=== PATIENT | female | born 1975 | race Caucasian/White ===

== ENCOUNTER 2017-05-17 12:01 | Emergency (ER) | payer SELFPAY ==
--- NOTE | 2017-05-17 12:18 | ERNOTE ---
Abdominal HPI - General Chief Complaint: Abdominal Pain Time Seen by Provider: 05/17/17 12:11 Source: patient Exam Limitations: no limitations - Immun/Allergies/Home Medications Immunizatons: IMMUNIZATION HX Immunizations Up to Date Yes History of Influenza Vaccine No Hx Pneumococcal Vaccination No Allergies/Adverse Reactions: Allergies meperidine HCl [From Demerol] Adverse Reaction (Verified 05/17/17 12:13) Home Medications: HOME MEDICATIONS LORazepam [Ativan] 0.5 mg PO TID PRN #20 tab 12/26/14 [Last Taken Unknown] traMADol HCL [Ultram] 50 mg PO QID PRN #30 tab 12/26/14 [Last Taken Unknown] Cholecalciferol [Vitamin D] 5,000 unit PO 09/03/15 [Last Taken Unknown] Naproxen [Naprosyn] 500 mg PO BID PRN #60 tab 09/03/15 [Last Taken Unknown] Pantoprazole Sodium 40 mg PO DAILY 09/03/15 [Last Taken Unknown] Promethazine HCl [Phenergan] 25 mg PO PRN 09/03/15 [Last Taken Unknown] Sucralfate [Carafate] 1 gm PO QID 09/03/15 [Last Taken Unknown] HYDROcodone/ACETAMINOPHEN [Mcandrews 5-325 Tablet] 1 - 2 tab PO Q6H PRN #16 tab [Last Taken Unknown] Trifluridine [Viroptic] 1 drop RIGHTEYE Q2H #1 btl 11/20/15 [Last Taken Unknown] valACYclovir HCL [Valtrex] 1,000 mg PO TID #21 tab 11/20/15 [Last Taken Unknown] Famotidine [Pepcid] 20 mg PO DAILY #30 tablet 05/17/17 [Last Taken Unknown] - History of Present Illness Narrative: Patient comes into the emergency room for severe abdominal pain which began abruptly this morning at 6 AM. Patient states "I get these pains every 3 months ". She denies any vomiting she feels slightly nauseated denies any diarrhea or constipation. - Patient's Past Medical History Patient History - Medical: Anxiety Patient History - Cardiac/Respiratory: No pertinent hx Patient History - Cancer: No Hx of Cancer Patient History - Surgical Procedures: Cholecystectomy, Hysterectomy, Other Patient History - Other: Other - Social History Living Situations: home Abuse History: No History of abuse Psych History: Hx of Anxiety Smoking Status: Current every day smoker Alcohol Use: none Drug Use: none - Immunizations Immunizations Up to Date: Yes Hx Pneumococcal Vaccination: No History of Influenza Vaccine: No Physical Exam - Physical Exam General Appearance: Present: other - patient is curled up in bed she is writhing in pain she is holding her belly she points to the mid epigastric region. Head Exam: Present: normal inspection, no evidence of injury Ears, Nose, Throat: Present: normal ENT inspection Neck: Present: normal inspection, nontender Respiratory: Present: no respiratory distress, normal breath sounds, no accessory muscle use, chest nontender, lungs clear Cardiovascular/Chest: Present: regular rate, rhythm, no murmur, normal peripheral pulses Gastrointestinal/Abdominal: Present: normal bowel sounds, nondistended, soft, no organomegaly, other - patient does have some diffuse abdominal tenderness but the abdominal palpation reveals that the belly is very soft there is normal bowel sounds and no rebound tenderness Extremity Exam: Present: normal inspection, normal range of motion ED Progress - Results and Orders Patient's Lab Results:: I have reviewed the patient's lab results. - Vital Signs Patient's Vital Signs:: I have reviewed the patient's vital signs. Vital Signs: Vital Signs 05/17/17 12:07 Temperature 37.1 C Pulse Rate 84 Respiratory 19 Rate Blood Pressure 133/53 O2 Sat by Pulse 98 Oximetry - X-Ray X-Ray #1 X-Ray: abdomen - Progress/Reassessment Chief Complaint: Abdominal Pain Plan - Plan Plan: All of this patient's test results and x-ray results are negative for any pathology however the patient has a lot of pain. I contacted her primary care physician's office in one of the nurses mentioned that in her chart it is documented that the patient has chronic gastritis as such patient was given Pepcid 20 mg IV Zofran 4 mg IV and Dilaudid 1 mg IV and she will be discharged home to follow up with her primary care physician Departure - Departure Clinical Impression: Gastritis Qualifiers: Gastritis type: unspecified gastritis Chronicity: acute Gastritis bleeding: without bleeding Qualified Code(s): K29.00 - Acute gastritis without bleeding Disposition: Home self-care Condition: Good Instructions: Gastritis, Adult, [id number] Prescriptions: Famotidine [Pepcid] 20 mg PO DAILY #30 tablet
[2017-05-17 12:29] LABS: Hematocrit 32.6 % (37.0-47.0); Hemoglobin 12.2 gm/dL (12.5-16.0); Mean Cell Volume 85.8 fl (78-100); Mean Corpuscular Hemoglobin 32.1 pg (27-31); Mean Corpuscular Hgb Conc 37.4 g/dl (32-36); Mean Platelet Volume 9.6 fl (6.0-9.5); Neutrophil # 3.5 K/mm3 (1.3-6.0); Platelet Count 91 K/mm3 (150-450); Red Cell Distribution Width 15.9 % (11.5-14.0); White Blood Count 5.3 K/mm3 (4.0-10.5)
[2017-05-17] MEDS ORDERED: FAMOTIDINE 10 MG/ML VIAL IV ONE ×2 (12:29→12:40)
[2017-05-17] MEDS ORDERED: NORMAL SALINE 1,000 ML IV ONE (12:29)
[2017-05-17] MEDS ORDERED: ONDANSETRON HCL/PF 2 MG/ML VIAL IV ONE (12:29)
[2017-05-17] MEDS ORDERED: ONDANSETRON HCL/PF 2 MG/ML VIAL ONE (12:40)
[2017-05-17 12:45] LABS: Albumin * 3.9 gm/dl (3.4-5.0); Anion Gap 15.2 mmol/L (6.8-13.8); BUN/Creatinine Ratio 21.1 (9.0-21.6); Bilirubin, Total 1.8 mg/dL (0.0-1.1); Ca. Corrected For Albumin 8.5 mg/dL (8.4-10.2); Calcium * 8.7 mg/dL (7.9-10.9); Carbon Dioxide 21.8 mmol/L (24-32.6)
[2017-05-17 13:27] LABS: Urine Bilirubin Negative (NEGATIVE); Urine Blood Negative /ul (NEGATIVE); Urine Ketone Negative (NEGATIVE); Urine Nitrite Negative (NEGATIVE); Urine Protein Negative (NEGATIVE); Urine Specific Gravity <=1.005 SP.GR. (1.005-1.010); Urine Urobilinogen Normal (NORMAL)
[2017-05-17 13:33] LABS: Urine Appearance Clear; Urine Color Yellow; Urine RBC None Seen /hpf (0-5); Urine WBC None Seen /hpf (0-5)
[2017-05-17 13:34] LABS: Urine Bacteria None Seen
[2017-05-17] MEDS ORDERED: HYDROmorphone HCL 1 MG/ML DISP.SYRIN IV ONE (14:05)
[2017-05-17] MEDS ORDERED: HYDROmorphone HCL 1 MG/ML DISP.SYRIN ONE (14:12)
[2017-05-17 14:20] VITALS: BP 88/40
== END 2017-05-17 14:49 | disposition home or self-care (01) ==
LOC: ER 12:01
DX: K29.00 Acute gastritis without bleeding (principal); F17.200 Nicotine dependence, unspecified, uncomplicated
CPT/HCPCS: 36415; 74020; 80053; 81001; 85025; 96374; 96375; 99283; J2405

== ENCOUNTER 2017-05-19 13:16 | Emergency (ER) | payer SELFPAY ==
[2017-05-19] MEDS ORDERED: DIATRIZOATE MEGLUMINE, SODIUM 30 ML BTL ONE (14:18)
[2017-05-19] MEDS ORDERED: DIATRIZOATE MEGLUMINE, SODIUM 30 ML BTL PO ONE (14:34)
[2017-05-19 14:42] LABS: Albumin * 3.7 gm/dl (3.4-5.0); Anion Gap 11.7 mmol/L (6.8-13.8); BUN/Creatinine Ratio 14.9 (9.0-21.6); Bilirubin, Total 2.9 mg/dL (0.0-1.1); Ca. Corrected For Albumin 8.4 mg/dL (8.4-10.2); Calcium * 8.5 mg/dL (7.9-10.9); Carbon Dioxide 27.6 mmol/L (24-32.6); Hematocrit 28.3 % (37.0-47.0); Hemoglobin 10.9 gm/dL (12.5-16.0); Mean Cell Volume 83.7 fl (78-100); Mean Corpuscular Hemoglobin 32.2 pg (27-31); Mean Corpuscular Hgb Conc 38.5 g/dl (32-36); Mean Platelet Volume 10.9 fl (6.0-9.5); Neutrophil # 3.1 K/mm3 (1.3-6.0); Neutrophil % 57.9 % (42-75.0); Platelet Count 104 K/mm3 (150-450); Potassium 4.3 mmol/L (3.4-4.6); Red Blood Count 3.38 M/mm3 (4.2-5.4); Red Cell Distribution Width 16.1 % (11.5-14.0); White Blood Count 5.4 K/mm3 (4.0-10.5)
[2017-05-19 15:15] VITALS: BP 103/74
[2017-05-19] MEDS ORDERED: NORMAL SALINE 1,000 ML IV ONE (17:10)
[2017-05-19] MEDS ORDERED: FAMOTIDINE 10 MG/ML VIAL IV ONE ×2 (17:10→17:11)
[2017-05-19] MEDS ORDERED: ONDANSETRON HCL/PF 2 MG/ML VIAL ONE (17:11)
[2017-05-19] MEDS ORDERED: ONDANSETRON HCL/PF 2 MG/ML VIAL IV ONE (17:11)
[2017-05-19] MEDS ORDERED: FAMOTIDINE 20 MG TABLET PO ONE (17:14)
[2017-05-19] MEDS ORDERED: ONDANSETRON 4 MG TAB.RAPDIS PO ONE (17:14)
--- NOTE | 2017-05-19 17:19 | ERNOTE ---
Abdominal HPI - General Chief Complaint: Abdominal Pain Time Seen by Provider: 05/19/17 14:07 Source: patient Exam Limitations: no limitations - Immun/Allergies/Home Medications Immunizatons: IMMUNIZATION HX Immunizations Up to Date Yes History of Influenza Vaccine No Hx Pneumococcal Vaccination No Allergies/Adverse Reactions: Allergies meperidine HCl [From Demerol] Adverse Reaction (Verified 05/19/17 13:34) Home Medications: HOME MEDICATIONS traMADol HCL [Ultram] 50 mg PO QID PRN #30 tab 12/26/14 [Last Taken Unknown] Tamoxifen Citrate 05/19/17 [Last Taken Unknown] - History of Present Illness Narrative: pt here for persistent abdominal pain. this has been going on for some time and today pt is convinced that it is colitis, denies any fevers or chills or vomiting but has a bit of nausea Review of Systems - Review of Systems Constitutional: Present: no symptoms reported EYE: Present: no symptoms reported ENT: Present: no symptoms reported Respiratory: Present: no symptoms reported Cardiology: Present: no symptoms reported Gastrointestinal/Abdominal: Present: See HPI Genitourinary: Present: no symptoms reported - Patient's Past Medical History Patient History - Medical: Anxiety Patient History - Cardiac/Respiratory: No pertinent hx Patient History - Cancer: No Hx of Cancer Patient History - Surgical Procedures: Cholecystectomy, Hysterectomy, Other Patient History - Other: Other - Social History Living Situations: home Abuse History: No History of abuse Psych History: Hx of Anxiety Smoking Status: Current every day smoker Have you smoked in the past 12 months: Yes Alcohol Use: none Drug Use: none - Immunizations Immunizations Up to Date: Yes Hx Pneumococcal Vaccination: No History of Influenza Vaccine: No Physical Exam - Physical Exam General Appearance: Present: wd/wn, alert, no apparent distress Neck: Present: normal inspection Respiratory: Present: no respiratory distress, normal breath sounds Gastrointestinal/Abdominal: Present: normal bowel sounds, nondistended - patient complains of episodic abdominal pain all over the belly from time to time however her belly is soft nondistended and I don't feel any masses there are no rebound tenderness, soft Back Exam: Present: normal inspection Extremity Exam: Present: normal inspection, normal range of motion Neurological Exam: Present: alert, oriented, normal mood/affect ED Progress - Results and Orders Patient's Lab Results:: I have reviewed the patient's lab results. - Vital Signs Patient's Vital Signs:: I have reviewed the patient's vital signs. Vital Signs: Vital Signs 05/19/17 05/19/17 05/19/17 13:30 14:34 15:14 Temperature 36.9 C Pulse Rate 90 70 86 Respiratory 16 18 16 Rate Blood Pressure 115/56 112/52 103/74 O2 Sat by Pulse 98 100 100 Oximetry - CT/Ultrasound CT/Ultrasound Narrative: DT was read by radiologist as negative for colitis however small ovarian cyst was noted and patient was informed of this - Progress/Reassessment Chief Complaint: Abdominal Pain Plan - Plan Plan: There is no objective signs of this patient having colitis. This patient has chronic pain patient is to follow up with primary care doctor Departure - Departure Clinical Impression: Chronic abdominal pain Disposition: Home self-care Condition: Good Instructions: Chronic Pain Additional Instructions: An incidental cyst has been found on your ovary please follow-up with the primary care doctor for further investigation of this finding. 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
[2017-05-19] MEDS ORDERED: ONDANSETRON 4 MG TAB.RAPDIS ONE (17:20)
[2017-05-19] MEDS ORDERED: FAMOTIDINE 20 MG TABLET ONE (17:20)
== END 2017-05-19 17:27 | disposition home or self-care (01) ==
LOC: ER 13:16
DX: R10.9 Unspecified abdominal pain (principal); G89.29 Other chronic pain; F17.200 Nicotine dependence, unspecified, uncomplicated